=== PATIENT | female | born 1990 ===

== ENCOUNTER 2019-03-22 15:27 | Inpatient (IN) ==
[2019-03-22] MEDS ORDERED: IBUPROFEN 600 MG TABLET PO PRN (16:42)
[2019-03-22] MEDS ORDERED: ALUMINUM/MAGNES/SIMETH MAX STR 30 ML UDCUP PO PRN (16:42)
[2019-03-22] MEDS ORDERED: ONDANSETRON 4 MG/2 ML VIAL IV PRN (16:42)
[2019-03-22] MEDS ORDERED: ACETAMINOPHEN 500 MG TABLET PO PRN (16:42)
[2019-03-22] MEDS ORDERED: SENNA 8.6 MG TABLET PO PRN (16:42)
[2019-03-22] MEDS ORDERED: hydrOXYzine HCL 25 MG/1 ML VIAL IM PRN (16:45)
[2019-03-22] MEDS ORDERED: THIAMINE INJ 100 MG, FOLIC ACID INJ 1 MG, MULTIVITAMIN INJ 10 ML in SODIUM CHLORIDE 0.9... IV ONE (16:45)
[2019-03-22] MEDS ORDERED: MELATONIN 3 MG TABLET PO PRN (16:46)
[2019-03-22 17:38] LABS: Basophils % 0.7 % (0.0-0.8); Eosinophils # 0.1 10*3/uL (0.0-0.87); Eosinophils % 1.6 % (0.00-10.9); Hematocrit 29.3 VOL% (35.7-47.0); Hemoglobin 8.4 GM/DL (12.0-16.0); Immature Granulocytes % 0.2 %; Immature Granulocytes Absolute 0.01 #; Lymphocytes # 1.7 10*3/uL (1.4-4.0); Lymphocytes % 37.9 % (21.3-54.2); Mean Corpuscular HGB Conc 28.7 GM/DL (32-36); Mean Corpuscular Volume 82.8 FL (87-102); Mean Platelet Volume 9.3 FL (9.6-12.0); Monocytes % 9.1 % (1.7-12.7); Neutrophils % 50.5 % (38.7-73.9); Platelet Count 243 T/CUMM (130-400); Red Blood Count 3.54 MC/CUMM (3.8-5.5); White Blood Count 4.5 T/CUMM (4-12)
[2019-03-22 17:49] LABS: PT Patient Result 10.7 SECS
[2019-03-22 18:03] LABS: Alanine Aminotransferase 25 U/L (13-56); Albumin 3.5 G/DL (3.4-5.0); Alkaline Phosphatase 43 U/L (45-117); Amylase 111 U/L (25-115); Aspartate Amino Transferase 14 U/L (0-37); Bilirubin,Total < 0.39 MG/DL (0.2-1.0); Blood Urea Nitrogen 13 MG/DL (7-18); Calcium 8.3 MG/DL (8.5-10.1); Glucose 94 MG/DL (74-106); Osmolality,Calculated 282.1 MOS/KG (273-304); Total Protein 7.4 G/DL (6.4-8.3)
[2019-03-22] MEDS: METHOCARBAMOL 750 MG TABLET PO PRN (18:51)
[2019-03-22] MEDS: BUPRENORPHINE SL TAB 2 MG TABLET SL SCH (21:10)
[2019-03-22 22:34] LABS: Apearance,Urine CLEAR (Clear); Bilirubin,Urine Negative (Negative); Blood, Urine Small mg/dL (Negative); Glucose,Urine (UA) Negative (Negative); Ketones,Urine Negative (Negative); Mucus,Urine Occasional /LPF (Occasional); Nitrite,Urine Negative (Negative); Protein,Urine Negative; RBC,Urine 1 /HPF (0-4); Squamous Epithelial Cell,Urine Occasional /HPF (0-10); Urine Color Yellow (Yellow); Urine Specific Gravity 1.017 (1.001-1.035); Urine Urobilinogen < 2.0 EU/DL (0.2-1.0); WBC,Urine 1 /HPF (0-6)
[2019-03-22 22:35] LABS: Barbiturates Screen,Urine Negative (Negative); Benzodiazepines Screen,Urine Negative (Negative); Cannabinoid Screen,Urine Negative (Negative); Opiate Screen,Urine Positive (Negative); Phencyclidine Screen,Urine Negative (Negative)
[2019-03-23] MEDS: BUPRENORPHINE SL TAB 2 MG TABLET SL SCH (04:43)
[2019-03-23] MEDS: METHOCARBAMOL 750 MG TABLET PO PRN (13:30)
[2019-03-23] MEDS ORDERED: chlordiazePOXIDE 25 MG CAPSULE PO PRN (16:46)
[2019-03-23 16:54] VITALS: BP 130/92
== END 2019-03-23 18:16 | disposition home or self-care (01) | DRG 897 ==
LOC: N.4E 15:57
PROVIDERS: ADMIT Internal Medicine; ATTEND Internal Medicine